=== PATIENT | male | born 1960 | race African-American/Black ===

== ENCOUNTER → 2019-02-02 | Day surgery (SDC) | payer OTHER ==
[~2019-02-02] MED LIST: AMLO2.5T2 PO; BRIM5DRO3 EACHEYE; IV RINGERS,LACTATED 1000ML 1,000 ML IV ONE; LATA2.5D3 OP; LISI10TA2 PO; METF500T16 PO; PROPOFOL 40 ML IV ONE
[2019-02-02 08:16] VITALS: BP 113/59
== END ==
LOC: SURG 07:00
PROVIDERS: ATTEND Internal Medicine Gastroenterology
DX: Z12.11 Encounter for screening for malignant neoplasm of colon (principal); K64.0 First degree hemorrhoids; K63.89 Other specified diseases of intestine; F15.90 Other stimulant use, unspecified, uncomplicated; Z98.890 Other specified postprocedural states; Z72.89 Other problems related to lifestyle
CPT/HCPCS: 45378; J2704